=== PATIENT | male | born 1960 | race African-American/Black ===

== ENCOUNTER 2021-07-03 20:07 | Inpatient (IN) | payer OTHER, SELFPAY ==
[2021-07-03] MEDS ORDERED: NA CHLORIDE 0.9% 1,000 ML ONE (21:10)
[2021-07-03 21:29] LABS: Arterial Blood Carboxyhemoglob 0.9 % (0-1.5); Blood Gas Oxyhemoglobin 89.9 % (94-97); Blood O2 Saturation 91.5 % (92-98.5)
--- NOTE | 2021-07-03 22:07 | RAD REPORT ---
EXAM DESCRIPTION: RAD - Chest Single View - 07/03/2021 9:57 pm CLINICAL HISTORY: Cough;COPD COMPARISON: No comparisonsCHEST SINGLE VIEW dated 06/10/2014; CHEST PA AND LAT 2 VIEW dated 07/13/2011 FINDINGS: Lines: Sternotomy. Lungs: Moderate multifocal airspace disease predominantly in the lung bases. Pleural: No significant pleural effusions or pneumothorax. Cardiac: The heart size is within normal limits. Bones: No acute fractures. Other: IMPRESSION: Moderate bilateral airspace disease concerning for multifocal pneumonia.
[2021-07-03 22:29] LABS: Absolute Lymphocytes (CBC) 0.8 K/uL (0.7-4.9); Hematocrit 37.5 % (39.6-49.0); Lymphocytes % 5.8 % (15.3-44.8); MPV 10.1 fL (7.6-11.3); RBC Red Blood Cell Count 4.73 M/uL (4.33-5.43)
[2021-07-03] MEDS ORDERED: FAMOTIDINE 20 MG/2 ML VIAL IV ONE (22:35)
[2021-07-03] MEDS ORDERED: METHYLPREDNISOLONE 125 MG INJ ONE (22:35)
[2021-07-03] MEDS ORDERED: CEFTRIAXONE 1000 MG/VIAL ONE (22:35)
[2021-07-03] MEDS ORDERED: AZITHROMYCIN 500 MG INJ IVPB ONE (22:35)
[2021-07-03] MEDS ORDERED: NA CHLORIDE 0.9% 250 ML ONE (22:35)
[2021-07-03] MEDS ORDERED: ALBUTEROL INHALER 60 PUFF/8 GM IH ONE (22:36)
[2021-07-03 22:44] LABS: Protime INR 1.23
[2021-07-03 22:45] LABS: Blood Gas Oxyhemoglobin 91.6 % (94-97); Blood O2 Saturation 93.3 % (92-98.5)
[2021-07-03] MEDS ORDERED: MONTELUKAST 10 MG TAB ONE (22:53)
--- NOTE | 2021-07-03 23:03 | EDPHYS ---
Physician Documentation [facility] Name: Jamin Baca Age: 60 yrs Sex: Male : 1960 Arrival Date: 07/03/2021 Time: 20:11 Bed 3 Private MD: ED Physician Ricardo Christopher HPI: 07/03 21:11 This 60 yrs old Black Male presents to ER via EMS with complaints of sob, on bean supplemental o2 and covid recently. 21:11 The patient has shortness of breath at rest, with light activity. Onset: The bean symptoms/episode began/occurred 2 day(s) ago. Duration: The symptoms are continuous, and are steadily getting worse. The patient's shortness of breath is aggravated by coughing, exertion, light activity, is alleviated by sitting up, application of supplemental oxygen. Associated signs and symptoms: Pertinent positives: non-productive cough. Severity of symptoms: At their worst the symptoms were moderate in the emergency department the symptoms have resolved. The patient has not experienced similar symptoms in the past. Historical: - Allergies: 20:21 No Known Allergies; sm5 - Home Meds: 20:22 albuterol inhaler [Active]; doxazosin 4 mg oral tab 1 tab once daily [Active]; Lantus sm5 U-100 Insulin 100 unit/mL Sub-Q soln [Active]; metformin 500 mg Oral tab 1 tab 2 times per day [Active]; Reglan 5 mg Oral tab [Active]; - PMHx: 20:22 coronary artery disease; Diabetes mellitus; Hypertensive disorder; sm5 - PSHx: 20:22 Coronary artery bypass graft; sm5 - Immunization history:: Adult Immunizations unknown. - Social history:: Smoking status: unknown. - Family history:: not pertinent. ROS: 21:11 Constitutional: Negative for fever, chills, and weight loss, Eyes: Negative for injury, bean pain, redness, and discharge, ENT: Negative for injury, pain, and discharge, Neck: Negative for injury, pain, and swelling, Cardiovascular: Negative for chest pain, palpitations, and edema, Abdomen/GI: Negative for abdominal pain, nausea, vomiting, diarrhea, and constipation, Back: Negative for injury and pain, : Negative for injury, bleeding, discharge, and swelling, MS/Extremity: Negative for injury and deformity, Skin: Negative for injury, rash, and discoloration, Neuro: Negative for headache, weakness, numbness, tingling, and seizure, Psych: Negative for depression, anxiety, suicide ideation, homicidal ideation, and hallucinations, Allergy/Immunology: Negative for hives, rash, and allergies, Endocrine: Negative for neck swelling, polydipsia, polyuria, polyphagia, and marked weight changes, Hematologic/Lymphatic: Negative for swollen nodes, abnormal bleeding, and unusual bruising. 21:11 Respiratory: Positive for cough, shortness of breath, at rest. Exam: 21:11 Constitutional: This is a well developed, well nourished patient who is awake, alert, bean and in no acute distress. Head/Face: Normocephalic, atraumatic. Eyes: Pupils equal round and reactive to light, extra-ocular motions intact. Lids and lashes normal. Conjunctiva and sclera are non-icteric and not injected. Cornea within normal limits. Periorbital areas with no swelling, redness, or edema. ENT: Nares patent. No nasal discharge, no septal abnormalities noted. Tympanic membranes are normal and external auditory canals are clear. Oropharynx with no redness, swelling, or masses, exudates, or evidence of obstruction, uvula midline. Mucous membranes moist. Neck: Trachea midline, no thyromegaly or masses palpated, and no cervical lymphadenopathy. Supple, full range of motion without nuchal rigidity, or vertebral point tenderness. No Meningismus. Chest/axilla: Normal chest wall appearance and motion. Nontender with no deformity. No lesions are appreciated. Cardiovascular: Regular rate and rhythm with a normal S1 and S2. No gallops, murmurs, or rubs. Normal PMI, no JVD. No pulse deficits. Abdomen/GI: Soft, non-tender, with normal bowel sounds. No distension or tympany. No guarding or rebound. No evidence of tenderness throughout. Back: No spinal tenderness. No costovertebral tenderness. Full range of motion. Male : Normal genitalia with no discharge or lesions. Skin: Warm, dry with normal turgor. Normal color with no rashes, no lesions, and no evidence of cellulitis. MS/ Extremity: Pulses equal, no cyanosis. Neurovascular intact. Full, normal range of motion. Neuro: Awake and alert, GCS 15, oriented to person, place, time, and situation. Cranial nerves II-XII grossly intact. Motor strength 5/5 in all extremities. Sensory grossly intact. Cerebellar exam normal. Normal gait. Psych: Awake, alert, with orientation to person, place and time. Behavior, mood, and affect are within normal limits. 21:11 Respiratory: the patient does not display signs of respiratory distress, Respirations: no acute changes, Breath sounds: decreased breath sounds, that are mild, are scattered, rhonchi, that are mild, are scattered, Respiratory rate: 23 22:37 Musculoskeletal/extremity: DVT Exam: No signs of deep vein thrombosis. no pain, no bean swelling, no tenderness, negative Homans' sign noted on exam, no appreciated bluish discoloration, no erythema, no increased warmth. 23:29 ECG was reviewed by the Attending Physician. [facility] Vital Signs: 20:11 BP 131 / 77; Pulse 87; Resp 23; Temp 98.2; Pulse Ox 98% on 5 lpm NC; sm5 21:16 BP 141 / 93; Pulse 82; Resp 21 S; Pulse Ox 100% on R/A; lg3 MDM: 20:11 Patient medically screened. bean 21:14 Differential diagnosis: Anemia asthma, Bronchitis CHF exacerbation, Chronic Obstructive bean Pulmonary Disease pneumonia, reactive airway disease. Antibiotic administration: Not indicated. The patient's Wells Deep Vein Thrombosis Score was calculated as follows: Total Score: 0-2 Pts- Low Risk. The patient's pulmonary embolism risk score was calculated as follows: Total Score: 0-2 points. This patient was found to be at low risk for a pulmonary embolism by using the Well's assessment criteria. Immunization status: Influenza vaccine: within last 5 years. Data reviewed: vital signs, nurses notes, lab test result(s), EKG, radiologic studies. Data interpreted: manager monitoring: rate is 87 beats/min, rhythm is regular, Pulse oximetry: on room air is 98 %. Test interpretation: by ED physician or midlevel provider: ECG, plain radiologic studies. Counseling: I had a detailed discussion with the patient and/or guardian regarding: the historical points, exam findings, and any diagnostic results supporting the discharge/admit diagnosis, lab results, radiology results. 07/03 21:04 Order name: Basic Metabolic Panel [facility] 07/03 21:04 Order name: CBC with Diff; Complete Time: 23:59 [facility] 01/31 21:04 Order name: LFT's [facility] 07/03 21:04 Order name: Magnesium [facility] 07/03 21:04 Order name: NT PRO-BNP [facility] 07/03 21:04 Order name: PT-INR; Complete Time: 23:02 [facility] 07/03 21:04 Order name: Troponin HS [facility] 07/03 21:04 Order name: ABG: ra; Complete Time: 22:36 [facility] 07/03 21:04 Order name: SARS-COV-2 RT PCR (Document "Date of Onset" if Symptomatic) [facility] 07/03 21:52 Order name: Blood Culture Adult (2) [facility] 07/03 22:26 Order name: C-Reactive Protein [facility] 07/03 22:26 Order name: Ferritin [facility] 07/03 21:04 Order name: XRAY Chest (1 view); Complete Time: 22:36 [facility] 07/03 21:04 Order name: EKG; Complete Time: 21:05 [facility] 07/03 21:04 Order name: Cardiac monitoring; Complete Time: 22:10 [facility] 07/03 21:04 Order name: EKG - Nurse/Tech; Complete Time: 23:41 [facility] 07/03 21:04 Order name: IV Saline Lock; Complete Time: 22:10 [facility] 07/03 21:04 Order name: Labs collected and sent; Complete Time: 22:10 [facility] 07/03 22:30 Order name: ABG: ra; Complete Time: 00:41 [facility] 07/03 22:30 Order name: Manual Differential; Complete Time: 23:59 [facility] 07/03 21:04 Order name: O2 Per Protocol; Complete Time: 22:10 [facility] 07/03 21:04 Order name: O2 Sat Monitoring; Complete Time: 22:10 [facility] EC:29 Rate is 80 beats/min. Rhythm is regular. QRS [place] is Normal. [place] interval is normal. QRS bean interval is normal. QT interval is normal. No Q waves. T waves are Normal. ST Segment is depressed in leads I, II, III, aVL, aVF, V4, V5, V6. Clinical impression: Abnormal EKG without significant change and No evidence of ischemia. Interpreted by me. Reviewed by me. Administered Medications: 21:14 Drug: NS 0.9% 1000 ml Route: IV; Rate: 75 ml/hr; Site: right antecubital; lg3 22:48 Drug: Rocephin (cefTRIAXone) 1 grams Route: IV; Rate: bolus; Site: right forearm; sm5 22:50 Drug: SOLU-Medrol (methylPrednisoLONE) 125 mg Route: IVP; Site: right forearm; sm5 22:50 Drug: Albuterol HFA Inhaler 4 puffs Route: Inhalation; sm5 22:50 Drug: Pepcid (famotidine) 20 mg Route: IVP; Site: right forearm; sm5 22:51 Drug: Zithromax (azithromycin) 500 mg Route: IVPB; Infused Over: 1 hrs; Site: right sm5 forearm; 07/04 00:42 Drug: Montelukast 10 mg Route: PO; sm5 Disposition Summary: 07/03/21 23:02 Hospitalization Ordered Hospitalization Status: Observation bean Provider: Kar Santillan cha Location: Telemetry/MedSurg (observation) bean Condition: Stable bean Problem: new bean Symptoms: have improved bean Bed/Room Type: Standard [facility] Room Assignment: 410(07/04/21 01:09) Diagnosis - Hypoxemia bean - Coronavirus infection, unspecified bean - Pneumonia due to SARS-associated coronavirus bean - Elevated white blood cell count bean - Bandemia bean - Anemia, unspecified bean Forms: - Medication Reconciliation Form bean - SBAR form bean Signatures: Dispatcher [employer] EDMS Yaima Boyer RN RN mw Anderson, Corey, MD MD cha Attema, Lee, APPELLATE CONFEREE-C APPELLATE CONFEREE-Cla1 Pily Dunn RN RN lg3 Madison Sanz RN RN sm5 Corrections: (The following items were deleted from the chart) 07/03 22:26 21:53 FERRITIN+C.LAB.BRZ ordered. EDMS EDMS : 21:53 C-REACTIVE PROTEIN+C.LAB.BRZ ordered. EDMS EDMS 22:27 21:50 Chest For PE Angio+CT.RAD.BRZ ordered. EDMS EDMS 07/04 01:09 07/03 23:02 bean royal
--- NOTE | 2021-07-03 23:03 | ER ---
Nurse's Notes [facility] Name: Jamin Baca Age: 60 yrs Sex: Male : 1960 Arrival Date: 07/03/2021 Time: 20:11 Bed 3 Private MD: Diagnosis: Hypoxemia;Coronavirus infection, unspecified;Pneumonia due to SARS-associated coronavirus;Elevated white blood cell count;Bandemia;Anemia, unspecified Presentation: 07/03 20:11 Chief complaint: EMS states: pt released from longterm today. longterm unable to find someone sm5 to come get him so they called ems to bring him here since he is on O2. Coronavirus screen: Client reports previous positive COVID test result. Ebola Screen: No symptoms or risks identified at this time. Initial Sepsis Screen: Does the patient meet any 2 criteria? No. Patient's initial sepsis screen is negative. Does the patient have a suspected source of infection? No. Patient's initial sepsis screen is negative. Risk Assessment: Do you want to hurt yourself or someone else? Patient reports no desire to harm self or others. Onset of symptoms is unknown. 20:11 Method Of Arrival: EMS 5 20:11 Acuity: SERVANDO 5 sm5 Triage Assessment: 20:24 General: Appears in no apparent distress. Behavior is appropriate for age. Pain: Denies sm5 pain. Neuro: No deficits noted. Level of Consciousness is awake, alert. Cardiovascular: No deficits noted. Capillary refill < 3 seconds Patient's skin is warm and dry. Respiratory: Airway is patent Trachea midline Respiratory effort is even, unlabored. : Velasquez in place. Historical: - Allergies: 20:21 No Known Allergies; sm5 - Home Meds: 20:22 albuterol inhaler [Active]; doxazosin 4 mg oral tab 1 tab once daily [Active]; Lantus sm5 U-100 Insulin 100 unit/mL Sub-Q soln [Active]; metformin 500 mg Oral tab 1 tab 2 times per day [Active]; Reglan 5 mg Oral tab [Active]; - PMHx: 20:22 coronary artery disease; Diabetes mellitus; Hypertensive disorder; sm5 - PSHx: 20:22 Coronary artery bypass graft; sm5 - Immunization history:: Adult Immunizations unknown. - Social history:: Smoking status: unknown. - Family history:: not pertinent. Screenin:14 Abuse screen: Denies threats or abuse. Denies injuries from another. Nutritional sm5 screening: No deficits noted. Tuberculosis screening: No symptoms or risk factors identified. Fall Risk None identified. Assessment: 21:15 Reassessment: Patient appears in no apparent distress at this time. No changes from lg3 previously documented assessment. Patient and/or family updated on plan of care and expected duration. Pain level reassessed. Patient is alert, oriented x 3, equal unlabored respirations, skin warm/dry/pink. General:. Pain: Denies pain. Cardiovascular: Capillary refill < 3 seconds JVD is absent Patient's skin is warm and dry. Respiratory: Airway is patent Trachea midline Respiratory effort is even, unlabored, Respiratory pattern is regular, symmetrical. 22:32 Reassessment: No changes from previously documented assessment. sm5 23:47 Reassessment: No changes from previously documented assessment. Patient and/or family sm5 updated on plan of care and expected duration. Pain level reassessed. 07/04 00:56 Reassessment: No changes from previously documented assessment. Patient and/or family sm5 updated on plan of care and expected duration. Pain level reassessed. Vital Signs: 07/03 20:11 BP 131 / 77; Pulse 87; Resp 23; Temp 98.2; Pulse Ox 98% on 5 lpm NC; sm5 21:16 BP 141 / 93; Pulse 82; Resp 21 S; Pulse Ox 100% on R/A; lg3 ED Course: 20:11 Patient arrived in ED. mw2 20:11 Madison Sanz RN is Primary Nurse. sm5 20:11 Ricardo Christopher MD is Attending Physician. bean 20:14 Triage completed. sm5 20:25 Arm band placed on left wrist. sm5 20:25 Patient has correct armband on for positive identification. Bed in low position. Call 5 light in reach. Side rails up X2. 20:25 No provider procedures requiring assistance completed. sm5 21:57 XRAY Chest (1 view) In Process Unspecified. EDMS 22:09 Blood Culture Adult (2) Sent. sm5 22:10 Basic Metabolic Panel Sent. sm5 22:10 CBC with Diff Sent. sm5 22:10 LFT's Sent. sm5 22:10 Magnesium Sent. sm5 22:10 NT PRO-BNP Sent. 5 22:10 PT-INR Sent. [facility] 22:10 Troponin HS Sent. [facility] 23:00 Kar Santillan MD is Hospitalizing Provider. [facility] 23:23 SARS-COV-2 RT PCR (Document "Date of Onset" if Symptomatic) Sent. [facility] 07/04 02:02 Patient admitted, IV remains in place. [facility] Administered Medications: 07/03 21:14 Drug: NS 0.9% 1000 ml Route: IV; Rate: 75 ml/hr; Site: right antecubital; lg3 22:48 Drug: Rocephin (cefTRIAXone) 1 grams Route: IV; Rate: bolus; Site: right forearm; [facility] 22:50 Drug: SOLU-Medrol (methylPrednisoLONE) 125 mg Route: IVP; Site: right forearm; [facility] 22:50 Drug: Albuterol HFA Inhaler 4 puffs Route: Inhalation; [facility] 22:50 Drug: Pepcid (famotidine) 20 mg Route: IVP; Site: right forearm; [facility] 22:51 Drug: Zithromax (azithromycin) 500 mg Route: IVPB; Infused Over: 1 hrs; Site: right 5 forearm; 07/04 00:42 Drug: Montelukast 10 mg Route: PO; [facility] Outcome: 07/03 23:02 Decision to Hospitalize by Provider. [facility] 07/04 02:00 Patient left the ED. [facility] 02:02 Admitted to Tele accompanied by nurse, via wheelchair, with chart. [facility] 02:02 Condition: stable 02:02 Instructed on the need for admit. Signatures: Dispatcher [employer] EDMS Ricardo Christopher MD MD cha [place], MyKena mw2 Pily Dunn, PRAFUL RN lg3 Charleen Llamas 5 Madison Sanz, PRAFUL RN 5 Corrections: (The following items were deleted from the chart) 07/03 22:26 22:09 FERRITIN+C.LAB.BRZ drawn and sent. [facility] EDWA : 22:09 C-REACTIVE PROTEIN+C.LAB.BRZ drawn and sent. [address]
--- NOTE | 2021-07-03 23:41 | P.HP ---
Certification for Inpatient Patient admitted to: Inpatient With expected LOS: >2 Midnights Patient will require the following post-hospital care: None Practitioner: I am a practitioner with admitting privileges, knowledge of patient current condition, hospital course, and medical plan of care. Services: Services provided to patient in accordance with Admission requirements found in Title 42 Section 412.3 of the Code of Federal Regulations <Ottoniel Deras - Last Filed: 07/04/21 00:42> Patient History Date of Service: 07/04/21 Primary Care Provider: None Reason for admission: COVID-19 Pneumonia History of Present Illness: 60-year-old -Mexican male with history of CAD, diabetes mellitus type 2insulin-dependent, hypertension presents the emergency department for shortness of breath. Patient was reportedly recently admitted at [facility] for Covid pneumonia, patient reports that he spent 3 to 4 weeks at [facility] and was discharged on home oxygen back to [facility] but was released from [facility] without oxygen, patient was brought into our emergency department for further evaluation. Patient found to be mildly hypoxic satting around 88 to 89% on room air. Patient with mild leukocytosis, tolerating to the cannula well around 2 L at this time. Patient also without place to be discharged at this time reports that he was previously staying with his sister but she kicked him out, his mother lives in [place], also reports he has some friends in the area. ED provider wishes to admit for further evaluation and management of COVID-19 pneumonia with hypoxia. - Past Medical/Surgical History -: Diabetes mellitus type 2insulin-dependent -: Hypertension -: CAD -: CABG Psychosocial/ Personal History: Patient appears to be homeless at this time was recently released from [facility] - Family History Father History Unknown: Yes - Social History Smoking Status: Never smoker Alcohol use: Yes CD- Drugs: Yes Caffeine use: No Place of Residence: Home <Ottoniel Deras - Last Filed: 07/04/21 00:42> Date of Service: 07/04/21 <Kar Santillan - Last Filed: 07/04/21 18:24> Allergies methadone [Methadone] Allergy (Intermediate, Verified 07/12/11 21:00) Hives/Rash Home Medications: Aspirin Chewable 81 mg PO DAILY 07/12/11 Ampicillin Trihydrate 500 mg PO BID #0 capsule 07/18/11 Glimepiride [Amaryl] 1 mg PO BID #0 tablet 07/18/11 Metoprolol Tartrate [Lopressor*] 25 mg PO BID #0 tab 07/18/11 Review of Systems 10-point ROS is otherwise unremarkable Respiratory: Cough, Shortness of Breath <Ottoniel Deras - Last Filed: 07/04/21 00:42> Physical Examination - Physical Exam General: Alert, In no apparent distress, Oriented x3 HEENT: Atraumatic, PERRLA, Other (mm dry), EOMI, Sclerae nonicteric Neck: Supple, 2+ carotid pulse no bruit, No LAD, Without JVD or thyroid abnormality Respiratory: Clear to auscultation bilaterally, Normal air movement Cardiovascular: Regular rate/rhythm, Normal S1 S2 Capillary refill: <2 Seconds Gastrointestinal: Normal bowel sounds, No tenderness Musculoskeletal: No tenderness Integumentary: No rashes Neurological: Normal gait, Normal speech, Normal strength at 5/5 x4 extr, Normal tone, Normal affect Lymphatics: No axilla or inguinal lymphadenopathy External genitalia: Other (Velasquez in place) - Studies Laboratory Data (last 24 hrs) 07/03/21 21:58: PT 14.2 H, INR 1.23 07/03/21 21:58: WBC 13.70 H, Hgb 12.1 L, Hct 37.5 L, Plt Count 138 L <Ottoniel Deras - Last Filed: 07/04/21 00:42> - Studies Laboratory Data (last 24 hrs) 07/03/21 21:58: PT 14.2 H, INR 1.23 07/03/21 21:58: WBC 13.70 H, Hgb 12.1 L, Hct 37.5 L, Plt Count 138 L 07/03/21 21:58: Sodium 134 L, Potassium 3.8, BUN 9, Creatinine 0.62, Glucose 120 H, Magnesium 1.7, Total Bilirubin 0.4, AST 21, ALT 29, Alkaline Phosphatase 147 H Microbiology Data (last 24 hrs): 07/03/21 22:05 Blood - Blood Anaerobic Blood Culture - Final 07/03/21 21:58 Blood - Blood Anaerobic Blood Culture - Final <Kar Santillan - Last Filed: 07/04/21 18:24> Assessment and Plan - Plan Assessment: Acute hypoxic respiratory failure secondary to COVID-19 pneumonia Diabetes type 2insulin-dependent History of CAD status post CABG Plan: Acute hypoxic respiratory failure secondary to COVID-19 pneumonia: Patient with minor oxygen requirement this time currently saturating 88 to 89% on room air tolerate nasal cannula well around 2 to 3 L. Patient was reportedly sent home from [facility] without oxygen supply, also reportedly does not have a place to stay currently. Reports he was kicked out by his sister, has a mother that lives in [place]. Patient currently asking about shelters. Pulmonology consulted continue with IV steroids, trend CRP level, supplemental oxygen as needed, daily room air saturations, room air saturations for home oxygen. caregiver services home also consulted for assistance with discharge plan. Physical therapy also consulted as patient reports he is unsteady on his feet. Diabetes type 2insulin-dependent: ACH S Accu-Chek, sliding scale insulin. History of CAD status post CABG: Obtain and continue medications, monitor on telemetry. DVT PPX: Lovenox Code status: Full Discharge Plan: Home Plan to discharge in: Greater than 2 days - Advance Directives Does patient have a Living Will: No Does patient have a Durable POA for Healthcare: No - Code Status/Comfort Care Code Status Assessed: Yes (Full code) Critical Care: No Time Spent Managing Pts Care (In Minutes): 55 <Ottoniel Deras - Last Filed: 07/04/21 00:42>
[2021-07-03 23:57] LABS: Blood Morphology Comment NOT SEEN (NOT SEEN); Platelet Estimate ADEQ
[2021-07-04 00:07] LABS: ALT/SGPT 29 U/L (12-78); AST/SGOT 21 U/L (15-37); Albumin 1.6 g/dL (3.4-5.0); Alkaline Phosphatase 147 U/L (45-117); BUN Blood Urea Nitrogen 9 mg/dL (7-18); Bicarbonate 32 mmol/L (21-32); Bilirubin Direct 0.2 mg/dL (0-0.2); Bilirubin Total 0.4 mg/dL (0.2-1.0); Ferritin 1240.5 ng/mL (26-388); Glucose Level 120 mg/dL (74-106); NT PRO-BNP 937 pg/mL (<125); Potassium 3.8 mmol/L (3.5-5.1); Protein, Total 7.8 g/dL (6.4-8.2); Sodium Level 134 mmol/L (136-145)
[2021-07-04] MEDS ORDERED: ALBUTEROL 2.5 MG/3 ML NEB SOL NEB PRN (01:58)
[2021-07-04] MEDS ORDERED: SODIUM CHLORIDE 0.9% 10ML INJ IV PRN (01:58)
[2021-07-04] MEDS ORDERED: ONDANSETRON 4 MG/2 ML VIAL IV PRN (01:58)
[2021-07-04] MEDS ORDERED: ACETAMINOPHEN 500 MG TAB PO PRN (01:58)
[2021-07-04 03:51] LABS: Absolute Lymphocytes (CBC) 0.4 K/uL (0.7-4.9); Lymphocytes % 3.1 % (15.3-44.8); MPV 10.2 fL (7.6-11.3); RBC Red Blood Cell Count 4.77 M/uL (4.33-5.43)
[2021-07-04 04:15] LABS: ALT/SGPT 26 U/L (12-78); AST/SGOT 21 U/L (15-37); Albumin 1.5 g/dL (3.4-5.0); Alkaline Phosphatase 139 U/L (45-117); BUN Blood Urea Nitrogen 11 mg/dL (7-18); Bicarbonate 28 mmol/L (21-32); Bilirubin Total 0.4 mg/dL (0.2-1.0); Glucose Level 196 mg/dL (74-106); HDL Cholesterol 33 mg/dL (40-60); LDL Cholesterol, Calculated 122 (<130); Potassium 3.8 mmol/L (3.5-5.1); Protein, Total 7.6 g/dL (6.4-8.2); Sodium Level 134 mmol/L (136-145); Thyroid Stimulating Hormone 0.749 uIU/mL (0.360-3.740)
[2021-07-04 06:04] LABS: Urine Appearance CLEAR (Clear); Urine Bilirubin NEGATIVE (Negative); Urine Blood NEGATIVE (Negative); Urine Color YELLOW (Yellow); Urine Glucose NEGATIVE (Negative); Urine Microscopic Reflex NO UMIC; Urine Protein NEGATIVE (Negative); Urine pH 7.5 (5.0-7.0)
[2021-07-04] MEDS ORDERED: NA CHLORIDE 0.9% 500 ML IV ONE (06:49)
--- NOTE | 2021-07-04 06:57 | P.PN ---
Date of Service: 07/04/21 Subjective: Reports feeling little better this morning, breathing more comfortably Intermittently on 2 L nasal cannula overnight Denies any other symptoms/complaints Denies any rashes/skin lesions, no diarrhea, no abdominal pain ROS: 10 point ROS as noted above, otherwise negative Physical exam GEN: Alert, oriented, NAD HEENT: Normal conjunctiva, sclera anicteric CV: Regular rate and rhythm, no edema Pulm: Nonlabored respirations on 2L NC, dry cough ABD: Soft, nontender, nondistended Integumentary: No rashes / skin breakdown Neuro: Normal speech, normal affect Problem List Acute hypoxemic respiratory failure secondary to COVID-19 pneumonia Diabetes mellitus type 2, insulin-dependent History of CAD, s/p CABG Oxygen requirement improving, down to 2 L nasal cannula, intermittently on room air Wean oxygen as tolerated Change to p.o. steroids Patient with borderline low blood pressure, hypotensive, received 1 L bolus in the ED Repeat 500 cc bolus this morning Start empiric antibiotics, to cover for possible bacterial superinfection, cover MRSA given recent hospitalization/custodial With mild leukocytosis, elevated procalcitonin. Leukocytosis may be secondary to steroids, patient does not recall if he was being treated with steroids in custodial or not Daily room air sats, may need home oxygen. director pharmacy services consulted Patient currently without a home / place to stay VTE: Lovenox Code: Full Dispo: Anticipate DC home in 1-2 days Time Spent Managing Pts Care (In Minutes): 35
[2021-07-04 07:36] VITALS: BMI 18.6
[2021-07-04] MEDS ORDERED: INFLUENZA VACCINE (for 6+ mo) 0.5 ML DOSE IMVAC ONE (08:00)
--- NOTE | 2021-07-04 08:14 | EKG ---
Test Date: 2021-07-03 Test Time: 23:22:57 [employer] Ranger: MESERET MEASUREMENT RESULTS: Intervals: Rate: 80 SC: 118 QRSD: 102 QT: 378 QTc: 435 [place]: P: 62 SC: 118 QRS: 64 T: 222 INTERPRETIVE STATEMENTS: Sinus rhythm with occasional premature ventricular complexes ST & T wave abnormality, consider inferior ischemia ST & T wave abnormality, consider anterolateral ischemia Abnormal ECG Compared to ECG 06/10/2014 10:41:32 ST (T wave) deviation now present Possible ischemia now present Sinus tachycardia no longer present T-wave abnormality no longer present Electronically Signed On 07-04-21 08:13:42 INVENTORY ACCOUNTANT by Will Simmons
[2021-07-04] MEDS: CEFTRIAXONE 1,000 MG in NA CHLORIDE 0.9% 50 ML IVPB SCH (08:43)
[2021-07-04] MEDS: INSULIN -REGULAR HUMAN 50 UNIT/0.5 ML ML SQ SCH ×4 (08:43→20:49)
[2021-07-04] MEDS: ENOXAPARIN 40 MG/0.4 ML SQ SCH (08:43)
[2021-07-04] MEDS ORDERED: VANCOMYCIN 1.25 GM in NA CHLORIDE 0.9% 250 ML IVPB SCH (09:00)
[2021-07-04] MEDS ORDERED: METHYLPREDNISOLONE 40 MG INJ IV SCH (09:00)
[2021-07-04] MEDS ORDERED: PANTOPRAZOLE 40 MG INJ IVP SCH (09:00)
--- NOTE | 2021-07-04 12:09 | P.CNS ---
Date of Consult: 07/04/21 Reason for Consult: Coronavirus pneumonia Primary Care Provider: None Chief Complaint: COVID-19 Pneumonia History of Present Illness: Patient is 60 years of age metabolic syndrome. From the emergency department with shortness of breath he was at [facility] diagnosed with canela diagnosed with pneumonia he was discharged home on oxygen was released with from skilled nursing without oxygen he is currently doing well denies any shortness of breath he was little hypoxic on admission no cough chest pain Allergies methadone [Methadone] Allergy (Intermediate, Verified 07/12/11 21:00) Hives/Rash Home Medications: Aspirin Chewable 81 mg PO DAILY 07/12/11 Ampicillin Trihydrate 500 mg PO BID #0 capsule 07/18/11 Glimepiride [Amaryl] 1 mg PO BID #0 tablet 07/18/11 Metoprolol Tartrate [Lopressor*] 25 mg PO BID #0 tab 07/18/11 - Past Medical/Surgical History -: Diabetes mellitus type 2insulin-dependent -: Hypertension -: CAD -: Coronavirus pneumonia -: CABG Psychosocial/ Personal History: Patient appears to be homeless at this time was recently released from skilled nursing/hospital - Family History Father History Unknown: Yes - Social History Smoking Status: Unknown if ever smoked Alcohol use: Yes CD- Drugs: Yes Caffeine use: No Place of Residence: Home Review of Systems 10-point ROS is otherwise unremarkable General: Weakness Respiratory: Shortness of Breath Physical Examination Temp Pulse Resp BP Pulse Ox 97.6 F 68 16 106/58 L 91 07/04/21 08:00 07/04/21 08:00 07/04/21 08:00 07/04/21 08:00 07/04/21 08:00 General: Alert, In no apparent distress, Oriented x3 Respiratory: Clear to auscultation bilaterally, Diminished Laboratory Data (last 24 hrs) 07/03/21 21:58: PT 14.2 H, INR 1.23 07/03/21 21:58: WBC 13.70 H, Hgb 12.1 L, Hct 37.5 L, Plt Count 138 L 07/03/21 21:58: Sodium 134 L, Potassium 3.8, BUN 9, Creatinine 0.62, Glucose 120 H, Total Bilirubin 0.4, AST 21, ALT 29, Alkaline Phosphatase 147 H - Problems (1) Pneumonia due to coronavirus disease 2019 Current Visit: Yes Status: Acute Plan: Patient is 60 years of age tested positive for coronavirus he was retaining recently at [facility] was discharged from the skilled nursing without oxygen he remains hypoxic chest x-ray shows bilateral pneumonia compatible with coronavirus his white count is mildly elevated not clinically septic once his blood cultures are negative can switch him over to p.o. antibiotics and steroid according to the respiratory therapy saturation 97% on room
[2021-07-04 13:12] LABS: Magnesium 1.7
[2021-07-04] MEDS: predniSONE 20 MG TAB PO SCH (20:49)
[2021-07-04] MEDS: VANCOMYCIN 1.25 GM in NA CHLORIDE 0.9% 250 ML IVPB SCH (20:53)
[2021-07-04] MEDS ORDERED: VANCOMYCIN 1 GM/VIAL ONE (20:54)
[2021-07-05 03:55] LABS: Absolute Lymphocytes (CBC) 0.8 K/uL (0.7-4.9); Hematocrit 35.3 % (39.6-49.0); Lymphocytes % 6.7 % (15.3-44.8); MPV 10.9 fL (7.6-11.3); RBC Red Blood Cell Count 4.43 M/uL (4.33-5.43)
[2021-07-05 04:11] LABS: ALT/SGPT 26 U/L (12-78); AST/SGOT 16 U/L (15-37); Albumin 1.4 g/dL (3.4-5.0); Alkaline Phosphatase 125 U/L (45-117); BUN Blood Urea Nitrogen 15 mg/dL (7-18); Bicarbonate 27 mmol/L (21-32); Bilirubin Total 0.2 mg/dL (0.2-1.0); Ferritin 893.9 ng/mL (26-388); Glucose Level 177 mg/dL (74-106); Potassium 3.9 mmol/L (3.5-5.1); Sodium Level 134 mmol/L (136-145)
--- NOTE | 2021-07-05 06:34 | P.PN ---
Date of Service: 07/05/21 Subjective: No acute events overnight Continues to improve Breathing more comfortably, remained on room air throughout the evening/night No new symptoms/complaints Talking with his family and figure where he will go upon discharge ROS: 10 point ROS as noted above, otherwise negative Physical exam GEN: Alert, oriented, NAD HEENT: Normal conjunctiva, sclera anicteric CV: Regular rate and rhythm, no edema Pulm: Nonlabored respirations on RA, dry cough ABD: Soft, nontender, nondistended Integumentary: No rashes / skin breakdown Neuro: Normal speech, normal affect Problem List Acute hypoxemic respiratory failure secondary to COVID-19 pneumonia Suspected bacterial superinfection/pneumonia Diabetes mellitus type 2, insulin-dependent History of CAD, s/p CABG Oxygen requirement improved, remained stable on room air Continue p.o. steroids Blood pressure improved/stable On empiric antibiotics for possible bacterial superinfection, and covered for MRSA given recent hospitalization/gel Blood cultures remain negative, de-escalate antibiotics to p.o. Levaquin With mild leukocytosis, elevated procalcitonin. Leukocytosis may be secondary to steroids, patient does not recall if he was being treated with steroids in custodial or not multimedia services manager consulted to assist with disposition Patient currently without a home / place to stay VTE: Lovenox Code: Full Dispo: [facility] Patient also discussed with family possible options were to go. Time Spent Managing Pts Care (In Minutes): 35
[2021-07-05] MEDS: CEFTRIAXONE 1,000 MG in NA CHLORIDE 0.9% 50 ML IVPB SCH (09:28)
[2021-07-05] MEDS: ENOXAPARIN 40 MG/0.4 ML SQ SCH (09:29)
[2021-07-05] MEDS: VANCOMYCIN 1.25 GM in NA CHLORIDE 0.9% 250 ML IVPB SCH (09:29)
[2021-07-05] MEDS: predniSONE 20 MG TAB PO SCH ×2 (09:30→21:43)
[2021-07-05] MEDS: PANTOPRAZOLE 40MG TABLET PO SCH (09:30)
[2021-07-05] MEDS: INSULIN -REGULAR HUMAN 50 UNIT/0.5 ML ML SQ SCH ×4 (09:30→21:43)
[2021-07-06 04:09] LABS: Absolute Lymphocytes (CBC) 0.6 K/uL (0.7-4.9); Hematocrit 34.6 % (39.6-49.0); Lymphocytes % 7.6 % (15.3-44.8); MPV 10.7 fL (7.6-11.3); RBC Red Blood Cell Count 4.35 M/uL (4.33-5.43)
[2021-07-06 04:40] LABS: ALT/SGPT 23 U/L (12-78); AST/SGOT 13 U/L (15-37); Albumin 1.5 g/dL (3.4-5.0); Alkaline Phosphatase 108 U/L (45-117); BUN Blood Urea Nitrogen 15 mg/dL (7-18); Bicarbonate 29 mmol/L (21-32); Bilirubin Total 0.2 mg/dL (0.2-1.0); Glucose Level 108 mg/dL (74-106); Protein, Total 6.8 g/dL (6.4-8.2); Sodium Level 137 mmol/L (136-145)
--- NOTE | 2021-07-06 06:41 | P.PN ---
Date of Service: 07/06/21 Subjective: No acute events overnight. Remains on room air, breathing comfortably No new symptoms/complaints ROS: 10 point ROS as noted above, otherwise negative Physical exam GEN: Alert, oriented, NAD HEENT: Normal conjunctiva, sclera anicteric CV: Regular rate and rhythm, no edema Pulm: Nonlabored respirations on RA ABD: Soft, nontender, nondistended Integumentary: No rashes / skin breakdown Neuro: Normal speech, normal affect Problem List Acute hypoxemic respiratory failure secondary to COVID-19 pneumonia Suspected bacterial superinfection/pneumonia Diabetes mellitus type 2, insulin-dependent History of CAD, s/p CABG Weaned off oxygen Continue p.o. steroids Blood pressure improved/stable Blood cultures remain negative, de-escalated antibiotics to p.o. Levaquin on 07/05 With mild leukocytosis, elevated procalcitonin. Leukocytosis may be secondary to steroids, patient does not recall if he was being treated with steroids in nursing home or not consulting services project manager consulted to assist with disposition Patient currently without a home / place to stay Called family members phone number that patient gave me, no answer No local shelters are currently open/available VTE: Lovenox Code: Full Dispo: consulting services project manager consulted, assisting with finding a place the patient to go Otherwise seems medically stable for discharge, does not require oxygen Time Spent Managing Pts Care (In Minutes): 35
[2021-07-06] MEDS: INSULIN -REGULAR HUMAN 50 UNIT/0.5 ML ML SQ SCH ×4 (08:52→21:00)
[2021-07-06] MEDS: ENOXAPARIN 40 MG/0.4 ML SQ SCH (08:53)
[2021-07-06] MEDS: PANTOPRAZOLE 40MG TABLET PO SCH (08:53)
[2021-07-06] MEDS: levoFLOXacin 750 MG TAB PO SCH (08:53)
[2021-07-06] MEDS: predniSONE 20 MG TAB PO SCH ×2 (08:53→21:12)
[2021-07-06] MEDS: GLUCERNA SHAKE 237 ML CAN PO SCH (21:00)
[2021-07-07] MEDS ORDERED: DOCUSATE NA 100 MG CAP PO ONE (01:11)
[2021-07-07] MEDS: predniSONE 20 MG TAB PO SCH ×2 (08:08→19:43)
[2021-07-07] MEDS: GLUCERNA SHAKE 237 ML CAN PO SCH ×2 (08:08→19:43)
[2021-07-07] MEDS: ENOXAPARIN 40 MG/0.4 ML SQ SCH (08:08)
[2021-07-07] MEDS: PANTOPRAZOLE 40MG TABLET PO SCH (08:08)
[2021-07-07] MEDS: levoFLOXacin 750 MG TAB PO SCH (08:08)
[2021-07-07] MEDS: BENZONATATE 100 MG CAP PO PRN (08:09)
[2021-07-07] MEDS: INSULIN -REGULAR HUMAN 50 UNIT/0.5 ML ML SQ SCH ×4 (09:15→21:00)
--- NOTE | 2021-07-07 18:15 | P.PN ---
Date of Service: 07/07/21 Subjective: No acute events overnight. Remains on room air, breathing comfortably No new symptoms/complaints trying to find place to stay, can't stay with family, has nobody else ROS: 10 point ROS as noted above, otherwise negative Physical exam GEN: Alert, oriented, NAD HEENT: Normal conjunctiva, sclera anicteric CV: Regular rate and rhythm, no edema Pulm: Nonlabored respirations on RA ABD: Soft, nontender, nondistended Neuro: Normal speech, normal affect Problem List Acute hypoxemic respiratory failure secondary to COVID-19 pneumonia Suspected bacterial superinfection/pneumonia Diabetes mellitus type 2, insulin-dependent History of CAD, s/p CABG Weaned off oxygen Continue p.o. steroids Blood pressure improved/stable Blood cultures remain negative, de-escalated antibiotics to p.o. Levaquin on 07/05 With mild leukocytosis, elevated procalcitonin. Leukocytosis may be secondary to steroids, patient does not recall if he was being treated with steroids in long-term or not disabilities services officer consulted to assist with disposition Patient currently without a home / place to stay Called family members phone number that patient gave me, no answer No local shelters are currently open/available VTE: Lovenox Code: Full Dispo: disabilities services officer consulted, assisting with finding a place the patient to go Otherwise medically stable for discharge, does not require oxygen Time Spent Managing Pts Care (In Minutes): 35
--- NOTE | 2021-07-08 06:38 | P.PN ---
Date of Service: 07/08/21 Subjective: Having some dizziness the last 24 hours, never participate much with physical therapy yesterday States dizziness occurs mostly when sitting up or standing, resolves after lay back down Blood pressure have been borderline low ROS: 10 point ROS as noted above, otherwise negative Physical exam GEN: Alert, oriented, NAD HEENT: Normal conjunctiva, sclera anicteric CV: Regular rate and rhythm, no edema Pulm: Nonlabored respirations on RA ABD: Soft, nontender, nondistended Neuro: Normal speech, normal affect Problem List Acute hypoxemic respiratory failure secondary to COVID-19 pneumonia Suspected bacterial superinfection/pneumonia Diabetes mellitus type 2, insulin-dependent History of CAD, s/p CABG Weaned off oxygen Continue p.o. steroids Blood pressure soft will check orthostatics, suspect this is why he was feeling dizzy. Will need IV fluids Blood cultures remain negative, de-escalated antibiotics to p.o. Levaquin on 07/05 surgical services manager consulted to assist with disposition Patient currently without a home / place to stay Family state patient cannot stay with any of them No local shelters are currently open/available VTE: Lovenox Code: Full Dispo: surgical services manager consulted, assisting with finding a place the patient to go Patient with dizziness, low blood pressure, anticipate stable for dc in ~24hrs Time Spent Managing Pts Care (In Minutes): 35
[2021-07-08] MEDS: INSULIN -REGULAR HUMAN 50 UNIT/0.5 ML ML SQ SCH ×4 (08:37→20:57)
[2021-07-08] MEDS: METFORMIN HCL 500 MG TAB PO SCH ×2 (08:37→17:35)
[2021-07-08] MEDS: levoFLOXacin 750 MG TAB PO SCH (08:37)
[2021-07-08] MEDS: GLUCERNA SHAKE 237 ML CAN PO SCH ×2 (08:38→20:56)
[2021-07-08] MEDS: ENOXAPARIN 40 MG/0.4 ML SQ SCH (08:38)
[2021-07-08] MEDS: predniSONE 20 MG TAB PO SCH ×2 (08:38→20:56)
[2021-07-08] MEDS: BENZONATATE 100 MG CAP PO PRN (08:38)
[2021-07-08] MEDS: PANTOPRAZOLE 40MG TABLET PO SCH (08:38)
[2021-07-08] MEDS ORDERED: NA CHLORIDE 0.9% 500 ML IV ONE (16:14)
[2021-07-08] MEDS: NA CHLORIDE 0.9% 1,000 ML IV SCH (17:08)
[2021-07-09] MEDS: NA CHLORIDE 0.9% 1,000 ML IV SCH ×2 (05:39→19:40)
--- NOTE | 2021-07-09 06:30 | P.PN ---
Date of Service: 07/09/21 Subjective: Patient positive orthostatic vitals yesterday, significant dizziness Received fluid bolus yesterday, and continuous IV fluids overnight with improvement Still with some dizziness, feels unsteady to get up Awaiting physical therapy ROS: 10 point ROS as noted above, otherwise negative Physical exam GEN: Alert, oriented, NAD HEENT: Normal conjunctiva, sclera anicteric CV: Regular rate and rhythm, no edema Pulm: Nonlabored respirations on RA ABD: Soft, nontender, nondistended Neuro: Normal speech, normal affect, str 5/5 all extremities, no nystagmus, PERRL Problem List Acute hypoxemic respiratory failure secondary to COVID-19 pneumonia Suspected bacterial superinfection/pneumonia Orthostatic hypotension Diabetes mellitus type 2, insulin-dependent History of CAD, s/p CABG Weaned off oxygen Continue p.o. steroids Blood cultures remain negative, de-escalated antibiotics to p.o. Levaquin on 07/05 +orthostatic, improved partially with IVF continue IVF, repeat orthostatics PT consulted professional services consultant consulted to assist with disposition Patient currently without a home / place to stay Family state patient cannot stay with any of them No local shelters are currently open/available VTE: Lovenox Code: Full Dispo: professional services consultant consulted, assisting with finding a place the patient to go Patient with dizziness, +orthostatics, anticipate stable for dc in ~24hrs Time Spent Managing Pts Care (In Minutes): 35
[2021-07-09 06:52] LABS: Hematocrit 36.2 % (39.6-49.0); MPV 9.4 fL (7.6-11.3); RBC Red Blood Cell Count 4.54 M/uL (4.33-5.43)
[2021-07-09 07:12] LABS: BUN Blood Urea Nitrogen 17 mg/dL (7-18); Bicarbonate 28 mmol/L (21-32); Glucose Level 274 mg/dL (74-106); Potassium 4.5 mmol/L (3.5-5.1); Sodium Level 132 mmol/L (136-145)
[2021-07-09 07:35] LABS: C-Reactive Protein < 2.90 mg/L (<3.00)
[2021-07-09] MEDS: levoFLOXacin 750 MG TAB PO SCH (07:50)
[2021-07-09] MEDS: ENOXAPARIN 40 MG/0.4 ML SQ SCH (07:50)
[2021-07-09] MEDS: METFORMIN HCL 500 MG TAB PO SCH ×2 (07:50→17:02)
[2021-07-09] MEDS: PANTOPRAZOLE 40MG TABLET PO SCH (07:50)
[2021-07-09] MEDS: BENZONATATE 100 MG CAP PO PRN (07:50)
[2021-07-09] MEDS: predniSONE 20 MG TAB PO SCH (07:50)
[2021-07-09] MEDS: GLUCERNA SHAKE 237 ML CAN PO SCH ×2 (07:51→21:00)
[2021-07-09] MEDS: INSULIN -REGULAR HUMAN 50 UNIT/0.5 ML ML SQ SCH ×4 (07:51→21:00)
--- NOTE | 2021-07-10 06:27 | P.PN ---
Date of Service: 07/10/21 Subjective: Patient reports feeling better today, less dizzy, able to sit up most times without some dizziness. Has not been out of bed Waiting for physical therapy today ROS: 10 point ROS as noted above, otherwise negative Physical exam GEN: Alert, oriented, NAD HEENT: Normal conjunctiva, sclera anicteric CV: Regular rate and rhythm, no edema Pulm: Mild labored respirations on RA ABD: Soft, nontender, nondistended Neuro: Normal speech, normal affect, str 5/5 all extremities, no nystagmus, PERRL Problem List Acute hypoxemic respiratory failure secondary to COVID-19 pneumonia Suspected bacterial superinfection/pneumonia Orthostatic hypotension Diabetes mellitus type 2, insulin-dependent History of CAD, s/p CABG Weaned off oxygen Continue p.o. steroids Blood cultures remain negative, de-escalated antibiotics to p.o. Levaquin on 07/05 +orthostatic, improving with IVF Awaiting for physical therapy reevaluation today, patient continues with some dizziness with change of position sales representative facility services consulted to assist with disposition Patient currently without a home / place to stay Family state patient cannot stay with any of them No local shelters are currently open/available, no shelters in [facility] either VTE: Lovenox Code: Full Dispo: sales representative facility services consulted, unable to find a place for patient to go Patient with dizziness, +orthostatics, improving, anticipate dc in ~24hrs Discussed with patient today that he will need to make arrangements for likely discharge tomorrow Time Spent Managing Pts Care (In Minutes): 35
[2021-07-10] MEDS: INSULIN -REGULAR HUMAN 50 UNIT/0.5 ML ML SQ SCH ×4 (07:30→20:13)
[2021-07-10] MEDS: PANTOPRAZOLE 40MG TABLET PO SCH (08:00)
[2021-07-10] MEDS: GLUCERNA SHAKE 237 ML CAN PO SCH ×2 (09:00→19:57)
[2021-07-10] MEDS: NA CHLORIDE 0.9% 1,000 ML IV SCH ×2 (09:00→19:58)
[2021-07-10] MEDS: METFORMIN HCL 500 MG TAB PO SCH ×2 (09:00→17:28)
[2021-07-10] MEDS: ENOXAPARIN 40 MG/0.4 ML SQ SCH (09:28)
[2021-07-10] MEDS: predniSONE 20 MG TAB PO SCH (09:29)
[2021-07-10] MEDS: levoFLOXacin 750 MG TAB PO SCH (09:29)
[2021-07-11 03:56] LABS: Absolute Lymphocytes (CBC) 1.1 K/uL (0.7-4.9); Hematocrit 36.9 % (39.6-49.0); Lymphocytes % 13.6 % (15.3-44.8); MPV 9.5 fL (7.6-11.3)
[2021-07-11 04:07] VITALS: O2SAT 95
[2021-07-11 04:15] LABS: BUN Blood Urea Nitrogen 17 mg/dL (7-18); Bicarbonate 31 mmol/L (21-32); Glucose Level 142 mg/dL (74-106); Potassium 4.2 mmol/L (3.5-5.1); Sodium Level 136 mmol/L (136-145)
[2021-07-11] MEDS: INSULIN -REGULAR HUMAN 50 UNIT/0.5 ML ML SQ SCH ×3 (07:30→16:12)
[2021-07-11] MEDS: GLUCERNA SHAKE 237 ML CAN PO SCH (09:00)
[2021-07-11] MEDS: ENOXAPARIN 40 MG/0.4 ML SQ SCH (10:06)
[2021-07-11] MEDS: predniSONE 20 MG TAB PO SCH (10:06)
[2021-07-11] MEDS: METFORMIN HCL 500 MG TAB PO SCH ×2 (10:06→16:12)
[2021-07-11] MEDS: NA CHLORIDE 0.9% 1,000 ML IV SCH (11:40)
[2021-07-11 12:18] LABS: Magnesium 1.7
--- NOTE | 2021-07-11 14:05 | P.DS ---
Admission Date: 07/03/21 Discharge Date: 07/11/21 Primary Care Provider: None Disposition: ROUTINE DISCHARGE Discharge Condition: FAIR Reason for Admission: COVID-19 Pneumonia Brief History of Present Illness: 60-year-old -[place] male with history of CAD, diabetes mellitus type 2insulin-dependent, hypertension presented to the emergency department for shortness of breath. Patient was reportedly recently admitted at [facility] for Covid pneumonia, patient reports that he spent 3 to 4 weeks at [facility] and was discharged on home oxygen back to [facility] but was released from [facility] without oxygen, patient was brought into our emergency department for further evaluation. Patient found to be mildly hypoxic satting around 88 to 89% on room air. Patient with mild leukocytosis, tolerating to the cannula well around 2 L at this time. Patient also without place to be discharged at this time reports that he was previously staying with his sister but she kicked him out, his mother lives in [place], also reports he has some friends in the area. Patient hospitalized for further management. Hospital Course: Problem List Acute hypoxemic respiratory failure secondary to COVID-19 pneumonia Suspected bacterial superinfection/pneumonia Diabetes mellitus type 2, insulin-dependent History of CAD, s/p CABG Patient weaned off oxygen he was treated with steroids for the COVID Pneumona Blood cultures remain negative, treated with antibiotics for possible superimposed bacterial pneumonia He was complaining of dizziness, but this improved with IV fluid He tolerated physical therapy. director of services was involved in his disposition. Apparently I was told all the shelters in [place] are closed. Patient stated today he has some friends in the area to live wait for the meantime. He also stated he can arrange a ride on discharge. He has clinically improved, dizziness have improved and patient deemed stable for discharge. Vital Signs/Physical Exam: Temp Pulse Resp BP Pulse Ox 98.2 F 78 18 117/61 96 07/11/21 12:00 07/11/21 12:00 07/11/21 12:00 07/11/21 12:07/11/21 12:00 General: Alert, In no apparent distress, Oriented x3 HEENT: PERRLA, Mucous membr. moist/pink, EOMI Neck: JVD not distended Respiratory: Other (Nonlabored breathing) Cardiovascular: No edema, Regular rate/rhythm, Normal S1 S2 Gastrointestinal: Soft and benign, Non-distended, No tenderness Musculoskeletal: No swelling Integumentary: No rashes, No cyanosis Neurological: Other (No focal motor deficit) Laboratory Data at Discharge: WBC 7.80 K/uL (4.3-10.9) 07/11/21 03:08 Hgb 11.9 g/dL (13.6-17.9) L 07/11/21 03:08 Hct 36.9 % (39.6-49.0) L 07/11/21 03:08 Plt Count 271 K/uL (152-406) D 07/11/21 03:08 PT 14.2 SECONDS (9.5-12.5) H 07/03/21 21:58 INR 1.23 07/03/21 21:58 Sodium 136 mmol/L (136-145) 07/11/21 03:08 Potassium 4.2 mmol/L (3.5-5.1) 07/11/21 03:08 BUN 17 mg/dL (7-18) 07/11/21 03:08 Creatinine 0.78 mg/dL (0.55-1.3) 07/11/21 03:08 Glucose 142 mg/dL (74-106) H 07/11/21 03:08 Magnesium 1.7 07/11/21 03:08 Total Bilirubin 0.2 mg/dL (0.2-1.0) 07/06/21 03:01 AST 13 U/L (15-37) L 07/06/21 03:01 ALT 23 U/L (12-78) 07/06/21 03:01 Alkaline Phosphatase 108 U/L (45-117) 07/06/21 03:01 Triglycerides 71 mg/dL (<150) 07/04/21 03:24 Cholesterol 169 mg/dL (<200) 07/04/21 03:24 HDL Cholesterol 33 mg/dL (40-60) L 07/04/21 03:24 Cholesterol/HDL Ratio 5.12 07/04/21 03:24 Home Medications: Glimepiride [Amaryl] 1 mg PO BID #0 tablet 07/18/11 Aspirin Chewable 81 mg PO DAILY #30 07/11/21 Cholecalciferol (Vitamin D3) [Vitamin D3] 2,000 unit PO DAILY #60 capsule 07/11/21 Zinc Sulfate [Zinc Sulfate*] 220 mg PO BID #30 cap 07/11/21 predniSONE [Prednisone*] 20 mg PO DAILY #5 tab 07/11/21 New Medications: Aspirin Chewable 81 mg PO DAILY #30 predniSONE [Prednisone*] 20 mg PO DAILY #5 tab Cholecalciferol (Vitamin D3) [Vitamin D3] 2,000 unit PO DAILY #60 capsule Zinc Sulfate [Zinc Sulfate*] 220 mg PO BID #30 cap Diet: AHA Activity: Ad damaso Followup: NONE,NONE [Primary Care Provider] - 1-2 Weeks Time spent managing pt's care (in minutes): 38
[2021-07-11 16:55] VITALS: BP 107/59; TEMP 97.9
== END 2021-07-11 18:30 | disposition home or self-care (01) | DRG 177 ==
LOC: ER 20:07 → ERHOLD 23:18 → 4TH 07-04 01:27
PROVIDERS: ADMIT Hospitalist; ATTEND Hospitalist
DX: U07.1 COVID-19 (principal); J12.82 Pneumonia due to coronavirus disease 2019; J96.01 Acute respiratory failure with hypoxia; J15.9 Unspecified bacterial pneumonia; I10 Essential (primary) hypertension; E11.9 Type 2 diabetes mellitus without complications; I25.10 Atherosclerotic heart disease of native coronary artery without angina pectoris; I95.1 Orthostatic hypotension; Z59.00 Homelessness unspecified; Z95.1 Presence of aortocoronary bypass graft
CPT/HCPCS: 36415; 71045; 80048; 80053; 80061; 80076; 80202; 81003; 82728; 82805; 82947; 83036; 83735; 83880; 84145; 84439; 84443; 84484; 85025; 85027; 85610; 86140; 87040; 93005; 96374; 96375; 97110; 97161; 97530; 99285; C9113; J0456; J1650; J2405; J2920; J2930; J3370; J7030; J7040; J7050; J7512; U0003

== ENCOUNTER 2021-10-19 04:08 | Emergency (ER) | payer OTHER, SELFPAY ==
[2021-10-19] MEDS ORDERED: ETOMIDATE 20 MG/10 ML VIAL IV ONE (04:09)
[2021-10-19] MEDS ORDERED: SUCCINYLCHOLINE 20 MG/ML (10 ML) IV ONE (04:09)
[2021-10-19] MEDS ORDERED: LORazepam 2 MG/ML VIAL ONE ×2 (04:27→05:22)
[2021-10-19] MEDS ORDERED: NA CHLORIDE 0.9% 500 ML ONE (04:27)
[2021-10-19 04:28] LABS: Arterial Blood Carboxyhemoglob 1.3 % (0-1.5); Blood Gas Oxyhemoglobin 88.4 % (94-97); Blood O2 Saturation 90.4 % (92-98.5)
[2021-10-19 04:31] LABS: Absolute Lymphocytes (CBC) 1.9 K/uL (0.7-4.9); Hematocrit 53.1 % (39.6-49.0); Lymphocytes % 36.6 % (15.3-44.8); MPV 8.9 fL (7.6-11.3); RBC Red Blood Cell Count 6.42 M/uL (4.33-5.43)
[2021-10-19] MEDS ORDERED: RSI MEDICATION KIT IV ONE (04:44)
[2021-10-19] MEDS ORDERED: propofoL 1,000 MG/100 ML VIAL IV ONE ×2 (04:44→10:37)
[2021-10-19 04:46] LABS: Urine Blood Negative (Negative); Urine Glucose 1+ (Negative); Urine Protein Negative (Negative); Urine Specific Gravity 1.015 (1.005-1.030); Urine pH 5.5 (5.0-7.0)
[2021-10-19 05:20] LABS: Barbiturates NEGATIVE (NEGATIVE); Benzodiazepines NEGATIVE (NEGATIVE); Cocaine POSITIVE (NEGATIVE); METHAMPHETAM NEGATIVE (NEGATIVE); Methadone NEGATIVE (NEGATIVE); Opiates NEGATIVE (NEGATIVE); Phencyclidine NEGATIVE (NEGATIVE); THC Cannibis NEGATIVE (NEGATIVE)
[2021-10-19 05:28] LABS: Urine Bacteria <20 /HPF (NONE SEEN)
[2021-10-19 05:29] LABS: Urine RBC <5 /HPF (NONE SEEN)
[2021-10-19 06:07] LABS: Albumin 3.3 g/dL (3.4-5.0); Bilirubin Total 0.3 mg/dL (0.2-1.0); Potassium 3.9 mmol/L (3.5-5.1); Troponin High Sensitivity 24.9 pg/mL (<58.9)
[2021-10-19] MEDS ORDERED: NA CHLORIDE 0.9% 100 ML ONE (06:46)
[2021-10-19] MEDS ORDERED: PIPERACIL/TAZO 3.375 GM VIAL IV ONE (06:46)
[2021-10-19] MEDS ORDERED: NA CHLORIDE 0.9% 250 ML ONE (06:57)
[2021-10-19] MEDS ORDERED: VANCOMYCIN 1 GM/VIAL ONE (06:57)
--- NOTE | 2021-10-19 07:09 | RAD REPORT ---
EXAM DESCRIPTION: CT - Head Brain Wo Cont - 10/19/2021 6:19 am CLINICAL HISTORY: Altered mental status, possible seizure COMPARISON: No comparisons TECHNIQUE: Axial 5 mm thick images of the head were obtained without IV contrast. All CT scans are performed using dose optimization technique as appropriate and may include automated exposure control or mA/KV adjustment according to patient size. FINDINGS: No intracranial hemorrhage is present and no focal mass lesion identified. There is no mid line shift or diffuse cerebral edema. A 2.8 centimeter area of decreased attenuation is in the medial left occipital lobe suspicious for acute or subacute CVA. There are no comparison studies for this p atient. No known prior CVA detailed in history. No significant atrophy changes noted. Chronic ischemic changes are moderately advanced for the patien t's age and scattered in the cerebral white matter. Thalamus, basal ganglia and brainstem tissues are generally spared any significant chronic ischemic change. No abnormal extra-axial fluid collections. Ventricles are normal. Mastoid air cells are clear. Scattered paranasal sinus mucosal thickening changes are present. Right deviation of the nasal septum is seen. Increased soft tissue in the nasopharynx is believed to be muc ous rather than a soft tissue mass. No acute bony findings. 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 Moderate severity chronic ischemic changes are present for patient age with no significant atrophy. No hemorrhage or focal mass lesion identified.
--- NOTE | 2021-10-19 07:22 | ER ---
Nurse's Notes [facility] Name: Jamin Baca Age: 61 yrs Sex: Male : 1960 Arrival Date: 10/19/2021 Time: 04:10 Bed 3 Private MD: Diagnosis: Cerebral infarction, unspecified-subacute;Altered mental status, unspecified;Cocaine abuse;Pneumonia, unspecified organism Presentation: 10/19 04:11 Chief complaint: EMS states: found pt in trailer, awake, responsive to painful stimuli, as6 not responding to questions. Coronavirus screen: At this time, the client does not indicate any symptoms associated with coronavirus-19. Ebola Screen: No symptoms or risks identified at this time. Initial Sepsis Screen: Does the patient meet any 2 criteria? Altered Mental Status. Does the patient have a suspected source of infection? No. Patient's initial sepsis screen is negative. Risk Assessment: Do you want to hurt yourself or someone else? Unable to obtain. Onset of symptoms is unknown. 04:11 Method Of Arrival: EMS: [facility] as6 04:11 Acuity: SERVANDO 2 as6 Historical: - Allergies: 11:06 methadone; jl7 - PMHx: 04:16 Coronary artery disease; diabetes mellitus; Hypertensive disorder; as6 - PSHx: 04:16 Coronary artery bypass graft; as6 - Immunization history:: Adult Immunizations unknown. - Social history:: Smoking status: unknown. - History obtained from: EMS. - Unable to obtain history due to: altered mental status. Screenin:16 Abuse screen: Denies threats or abuse. Denies injuries from another. Nutritional as6 screening: No deficits noted. Tuberculosis screening: No symptoms or risk factors identified. Fall Risk None identified. Assessment: 04:15 General: Appears distressed, Behavior is agitated, restless. Pain: Unable to use pain as6 scale. Patient is disoriented. Neuro: Arechiga Agitation-Sedation Scale (RASS): +1 Restless Level of Consciousness is awake, Oriented to none Pupils are constricted. Respiratory: Respiratory effort is labored, gasping, with retractions. Derm: Skin is diaphoretic, Skin temperature is cool. 07:00 Respiratory: Ventilator assessment: ET Tube: 7.5 23 cm at teeth Ventilator Mode: Assist as6 Control (AC) Tidal Volume: 460 Respiratory Rate: 16 FiO2: 45 PEEP: 5 HOB > 30 degrees. 07:20 Neuro: Arechiga Agitation-Sedation Scale (RASS): -5 Unarousable Level of Consciousness jh6 is unresponsive, Pupils are Pupil Size: 2mm sluggish, Reaction to noxious stimuli is none. GI: Abdomen is flat, Bowel sounds present X 4 quads. Abd is soft. 08:20 Reassessment: No changes from previously documented assessment. Patient and/or family jh6 updated on plan of care and expected duration. Pain level reassessed. no purposeful movement noted with noxious stimuli. 08:55 General: report given to Kathy BASILIO at [facility], room # 7404. 6 09:37 Reassessment: No changes from previously documented assessment. Patient and/or family jh6 updated on plan of care and expected duration. Pain level reassessed. Neuro: Arechiga Agitation-Sedation Scale (RASS): -4 Deep sedation. 10:30 Reassessment: [facility] at bedside for transport to [facility]. Pt without change jh6 and is sedated with Propofol at 40mcg. Pt opens eye but no purposeful movement or response to verbal stimuli. Pt moved to EMS pump and vent without issue or change in pts status. Vital Signs: 04:11 BP 143 / 105; Pulse 75; Resp 18 S; Temp 98.1(A); Pulse Ox 95% on R/A; Weight 72.57 kg; as6 Height 6 ft. 0 in. (182.88 cm); 04:41 BP 138 / 87; Pulse 80; Resp 20 S; as6 05:00 BP 195 / 111; Pulse 94; Resp 15 A; Pulse Ox 98% on 45% FiO2 ETT vent; as6 05:20 BP 146 / 61; Pulse 83; Resp 21 A; Pulse Ox 98% on 45% FiO2 ETT vent; as6 05:40 BP 130 / 87; Pulse 77; Resp 23 S; Pulse Ox 98% on 45% FiO2 ETT vent; as6 06:20 BP 141 / 56; Pulse 73; Resp 19 S; Temp 97.7(C); Pulse Ox 100% on 45% FiO2 ETT vent; as6 06:40 BP 144 / 57; Pulse 73; Resp 17 A; Temp 97.7(C); Pulse Ox 99% on 45% FiO2 ETT vent; as6 07:00 BP 139 / 55; Pulse 71; Resp 18 A; Temp 97.7(C); Pulse Ox 100% on 45% FiO2 ETT vent; as6 07:39 BP 148 / 47; Pulse 71; Resp 18; Temp 97.7; Pulse Ox 100% on ETT vent; Pain 0/10; jh6 08:39 BP 129 / 59; Pulse 76; Resp 16; Temp 97.3(C); Pulse Ox 100% on ETT vent; Pain 0/10; jh6 09:39 BP 132 / 86; Pulse 84; Resp 16; Temp 97.5(C); Pulse Ox 100% ; jh6 04:11 Body Mass Index 21.70 (72.57 kg, 182.88 cm) as6 ED Course: 04:10 Patient arrived in ED. rn 04:10 Corbin Santillan MD is Attending Physician. rn 04:11 Alfonzo Bolanos RN is Primary Nurse. as6 04:11 Maintain EMS IV. Dressing intact. Good blood return noted. Site clean \T\ dry. Gauge \T\ as 6 site: 20g LAC. 04:16 Triage completed. as6 04:17 Arm band placed on. as6 04:31 XRAY Chest (1 view) In Process Unspecified. EDMS 04:59 Assisted provider with intubation using 7.5 mm ETT via oral route. ET tube secured at as6 23cm at the teeth. Set up intubation tray. Intubated by Corbin Santillan MD Placement verified by CO2 detector w/ + color change, auscultating bilateral breath sounds, CXR, Patient tolerated well. 05:04 Velasquez cath inserted, using sterile technique, 16 Fr., by ED staff, balloon inflated, to as6 gravity drainage. 05:16 XRAY Chest (1 view) In Process Unspecified. EDMS 05:20 Assisted provider with central line placement. Set up central line tray. Triple lumen as6 line placed in right femoral. Line placed by Corbin Santillan MD Placement verified by blood return, Dressed with Tegaderm, Blood was collected. Patient tolerated well. 06:16 Bed in low position. Call light in reach. Side rails up X2. Client placed on continuous as6 cardiac and pulse oximetry monitoring. NIBP monitoring applied. 06:20 CT Head Brain wo Cont In Process Unspecified. EDMS 06:20 CT Aorta for Dissection In Process Unspecified. EDMS 07:12 Attending Physician role handed off by Corbin Santillan MD bean 07:12 Ricardo Christopher MD is Attending Physician. bean 07:15 transfer initiated with [facility]. em1 08:[address] [facility] accepted to room 7404. em1 11:07 Patient transferred, IV remains in place. intact, No redness/swelling at site. jl7 Administered Medications: 04:20 Drug: Ativan (LORazepam) 1 mg Route: IVP; Site: left antecubital; as6 04:20 Drug: NS 0.9% 500 ml Route: IV; Rate: bolus; Site: left antecubital; as6 04:57 Drug: Etomidate 20 mg Route: IVP; Site: left antecubital; as6 04:58 Drug: Succinylcholine 100 mg Route: IVP; Site: left antecubital; as6 05:03 Drug: Propofol 5 mcg/kg/min Route: IV; Rate: calculated rate; Site: left antecubital; as6 11:00 Follow up: IV Status: Infusion continued upon transfer jl7 05:14 Drug: Ativan (LORazepam) 2 mg Route: IVP; Site: left antecubital; as6 07:00 Follow up: Response: No adverse reaction jl7 06:58 Drug: vancoMYCIN 1 grams Route: IVPB; Infused Over: 2 hrs; Site: right femoral; as6 08:58 Follow up: Response: No adverse reaction; IV Status: Completed infusion; IV Intake: jl7 250ml 07:00 Drug: Zosyn (piperacillin-tazobactam) 3.375 grams Route: IVPB; Infused Over: 60 mins; as6 Site: right femoral; 08:00 Follow up: Response: No adverse reaction; IV Status: Completed infusion jl7 08:12 Follow up: IV Status: Completed infusion jh6 07:37 Drug: NS 0.9% 1000 ml Route: IV; Rate: 1 bolus; Site: left antecubital; jh6 08:30 Follow up: Response: No adverse reaction; IV Status: Completed infusion; IV Intake: jl7 1000ml 07:38 Drug: ProTONIX (pantoprazole) 40 mg Route: IVP; Site: left antecubital; jh6 11:00 Follow up: Response: No adverse reaction jl7 07:38 Drug: foLIC Acid 1 mg Route: IVPB; Site: left antecubital; 6 07:39 Follow up: Response: No adverse reaction; IV Status: Completed infusion jl7 07:42 Not Given (asprin on back ordere): Aspirin Suppository 300 mg ND once jh6 Medication: 06:22 VIS not applicable for this client. as6 Point of Care Testing: Blood Glucose: 04:16 Blood Glucose: 263 mg/dL; as6 Ranges: Intake: 08:30 IV: 1000ml; Total: 1000ml. jl7 08:58 IV: 250ml; Total: 1250ml. jl7 Outcome: 07:22 ER care complete, transfer ordered by . [facility] 11:07 Transferred by ground EMS to [facility], Transfer form completed. 7 11:07 critical 11:07 Discharge instructions given to EMS, Instructed on the need for transfer, Demonstrated understanding of instructions. 11:07 Patient left the ED. jl7 Signatures: Dispatcher [employer] EDMS Ricardo Christopher MD MD cha Nieto, Roman, MD MD rn Martinez, Eric em1 Raymond Patiño RN RN jl7 Alfonzo Bolanos RN RN as6 Pauline Barclay RN RN jh6 Corrections: (The following items were deleted from the chart) 11:20 09:37 Reassessment: No changes from previously documented assessment. Patient and/or jh6 family updated on plan of care and expected duration. Pain level reassessed. Patient is alert, oriented x 3, equal unlabored respirations, skin warm/dry/pink. 6 11:21 07:20 Cardiovascular: Capillary refill < 3 seconds JVD is absent Patient's skin is warm jh6 and dry. Pulses are all present. Rhythm is sinus rhythm 6 11:21 08:20 Reassessment: No changes from previously documented assessment. Patient and/or jh6 family updated on plan of care and expected duration. Pain level reassessed. Patient is alert, oriented x 3, equal unlabored respirations, skin warm/dry/pink. no purposeful movement noted with noxious stimuli 6
--- NOTE | 2021-10-19 07:22 | EDPHYS ---
Physician Documentation [facility] Name: Jamin Baca Age: 61 yrs Sex: Male : 1960 Arrival Date: 10/19/2021 Time: 04:10 Bed 3 Private MD: ED Physician Ricardo Christopher HPI: 10/19 04:15 This 61 yrs old Black Male presents to ER via Unassigned with complaints of AMS. rn 04:15 The patient presents with decreased mental status, decreased responsiveness. Onset: The rn symptoms/episode began/occurred at an unknown time. Possible causes: unknown. Current symptoms: In the emergency department the patient's symptoms are unchanged from the initial presentation. It is unknown whether or not the patient has had similar symptoms in the past. Per EMS, neighbor called 911 after hearing patient moaning and checking on him, noted decreased responsiveness or AMS. EMS reports showed some brief purposeful movements, but never spoke. no meds given, no other information given by EMS. . Historical: - Allergies: 11:06 methadone; jl7 - PMHx: 04:16 Coronary artery disease; diabetes mellitus; Hypertensive disorder; as6 - PSHx: 04:16 Coronary artery bypass graft; as6 - Immunization history:: Adult Immunizations unknown. - Social history:: Smoking status: unknown. - History obtained from: EMS. - Unable to obtain history due to: altered mental status. ROS: 04:15 Unable to obtain ROS due to altered mental status. rn Exam: 04:15 Constitutional: Thin male, diaphoretic, eyes open, deviated to the left, not speaking rn Head/Face: Normocephalic, atraumatic. Eyes: Eyes 2mm, no nystagmus, deviated to left Cardiovascular: Regular rate and rhythm. No pulse deficits. Respiratory: + mild tachypnea, no retractions Abdomen/GI: soft, non-tender Skin: Diaphoretic from neck up MS/ Extremity: Pulses equal, no cyanosis Neuro: Awake, groaning, all 4 extremities tense, no gross seizure activity, does not follow commands Vital Signs: 04:11 BP 143 / 105; Pulse 75; Resp 18 S; Temp 98.1(A); Pulse Ox 95% on R/A; Weight 72.57 kg; as6 Height 6 ft. 0 in. (182.88 cm); 04:41 BP 138 / 87; Pulse 80; Resp 20 S; as6 05:00 BP 195 / 111; Pulse 94; Resp 15 A; Pulse Ox 98% on 45% FiO2 ETT vent; as6 05:20 BP 146 / 61; Pulse 83; Resp 21 A; Pulse Ox 98% on 45% FiO2 ETT vent; as6 05:40 BP 130 / 87; Pulse 77; Resp 23 S; Pulse Ox 98% on 45% FiO2 ETT vent; as6 06:20 BP 141 / 56; Pulse 73; Resp 19 S; Temp 97.7(C); Pulse Ox 100% on 45% FiO2 ETT vent; as6 06:40 BP 144 / 57; Pulse 73; Resp 17 A; Temp 97.7(C); Pulse Ox 99% on 45% FiO2 ETT vent; as6 07:00 BP 139 / 55; Pulse 71; Resp 18 A; Temp 97.7(C); Pulse Ox 100% on 45% FiO2 ETT vent; as6 07:39 BP 148 / 47; Pulse 71; Resp 18; Temp 97.7; Pulse Ox 100% on ETT vent; Pain 0/10; jh6 08:39 BP 129 / 59; Pulse 76; Resp 16; Temp 97.3(C); Pulse Ox 100% on ETT vent; Pain 0/10; jh6 09:39 BP 132 / 86; Pulse 84; Resp 16; Temp 97.5(C); Pulse Ox 100% ; jh6 04:11 Body Mass Index 21.70 (72.57 kg, 182.88 cm) as6 Procedures: 05:02 Intubation: Ventilated with 100% NRB prior to procedure. O2 saturation prior to learning specialist was 90 %. Intubated orally using # 4 Compa blade with 7.5 mm ETT. was successful on first attempt. Ventilated with Ambu bag. Cricoid pressure applied during procedure. Tube secured with ETT kapadia at right side of mouth measured 23 cm at teeth. Placement verified by CXR, CO2 detector with (+) color change, auscultating bilateral breath sounds, O2 saturation after procedure was 94 %. Patient tolerated well. 05:22 Central Line: the site was prepped with Betadine, in sterile fashion, a triple lumen rn catheter was inserted, in the right femoral vein, in 1 attempts. placement was verified, by blood return, the site was dressed with Tegaderm, using sterile technique, the patient tolerated the procedure, well. MDM: 04:10 Patient medically screened. rn 05:22 ED course: Pt intubated for airway protection, minimally responsive, bloody sputum and rn foaming at mouth, no seizure activity noted, central line placed for access. . 07:22 Differential Diagnosis: CVA, electrolyte abnormality, hypoglycemia, intracranial bleed, bean pneumonia, seizure, sepsis, UTI, volume depletion. Data reviewed: vital signs, nurses notes, EMS record, lab test result(s), EKG, radiologic studies, CT scan, plain films. Data interpreted: laboratory monitor: rate is 75 beats/min, rhythm is regular, Pulse oximetry: on room air is 95 %. Test interpretation: by ED physician or midlevel provider: ECG, plain radiologic studies. Counseling: I had a detailed discussion with the patient and/or guardian regarding: the historical points, exam findings, and any diagnostic results supporting the discharge/admit diagnosis, lab results, radiology results, the need to transfer to another facility, for higher level of care, [facility] does not immediately have the required specialist. 10/19 04:12 Order name: CBC with Diff; Complete Time: 04:37 rn 10/19 04:12 Order name: CMP; Complete Time: 06:21 rn 10/19 04:12 Order name: Urine Microscopic Only; Complete Time: 05:32 rn 10/19 04:14 Order name: Troponin High Sensitivity; Complete Time: 06:21 rn 10/19 04:19 Order name: ABG; Complete Time: 04:47 rn 10/19 04:19 Order name: Lactate; Complete Time: 06:21 rn 10/19 04:19 Order name: Blood Culture Adult (2) rn 10/19 04:21 Order name: Urine Drug Screen; Complete Time: 05:27 rn 10/19 04:21 Order name: Urine Culture rn 10/19 04:24 Order name: ETOH Level; Complete Time: 06:02 rn 10/19 04:26 Order name: Glucose, Ancillary Testing; Complete Time: 04:37 EDMS 10/19 04:32 Order name: SARS-COV-2 RT PCR (Document "Date of Onset" if Symptomatic) rn 10/19 04:32 Order name: Flu; Complete Time: 07:04 rn 10/19 04:46 Order name: Urine Dipstick-Ancillary; Complete Time: 04:47 EDMS 10/19 04:12 Order name: CT Head Brain wo Cont; Complete Time: 07:17 rn 10/19 04:12 Order name: XRAY Chest (1 view) rn 10/19 04:12 Order name: CT Aorta for Dissection; Complete Time: 08:33 rn 10/19 05:02 Order name: XRAY Chest (1 view) rn 10/19 07:00 Order name: CREATININE WHOLE BLOOD; Complete Time: 07:04 EDMS 10/19 04:12 Order name: IV Start; Complete Time: 04:17 rn 10/19 04:12 Order name: Urine Dipstick-Ancillary (obtain specimen); Complete Time: 05:45 rn 10/19 04:12 Order name: Cardiac monitoring; Complete Time: 04:17 rn 10/19 04:12 Order name: EKG; Complete Time: 04:13 rn 10/19 04:12 Order name: EKG - Nurse/Tech; Complete Time: 04:49 rn 10/19 04:12 Order name: Glucose Level; Complete Time: 04:17 rn 10/19 04:12 Order name: O2 Sat Monitoring; Complete Time: 04:17 rn Administered Medications: 04:20 Drug: Ativan (LORazepam) 1 mg Route: IVP; Site: left antecubital; as6 04:20 Drug: NS 0.9% 500 ml Route: IV; Rate: bolus; Site: left antecubital; as6 04:57 Drug: Etomidate 20 mg Route: IVP; Site: left antecubital; as6 04:58 Drug: Succinylcholine 100 mg Route: IVP; Site: left antecubital; as6 05:03 Drug: Propofol 5 mcg/kg/min Route: IV; Rate: calculated rate; Site: left antecubital; as6 11:00 Follow up: IV Status: Infusion continued upon transfer jl7 05:14 Drug: Ativan (LORazepam) 2 mg Route: IVP; Site: left antecubital; as6 07:00 Follow up: Response: No adverse reaction 7 06:58 Drug: vancoMYCIN 1 grams Route: IVPB; Infused Over: 2 hrs; Site: right femoral; as6 08:58 Follow up: Response: No adverse reaction; IV Status: Completed infusion; IV Intake: jl7 250ml 07:00 Drug: Zosyn (piperacillin-tazobactam) 3.375 grams Route: IVPB; Infused Over: 60 mins; as6 Site: right femoral; 08:00 Follow up: Response: No adverse reaction; IV Status: Completed infusion jl7 08:12 Follow up: IV Status: Completed infusion 6 07:37 Drug: NS 0.9% 1000 ml Route: IV; Rate: 1 bolus; Site: left antecubital; 6 08:30 Follow up: Response: No adverse reaction; IV Status: Completed infusion; IV Intake: jl7 1000ml 07:38 Drug: ProTONIX (pantoprazole) 40 mg Route: IVP; Site: left antecubital; 6 11:00 Follow up: Response: No adverse reaction jl7 07:38 Drug: foLIC Acid 1 mg Route: IVPB; Site: left antecubital; 6 07:39 Follow up: Response: No adverse reaction; IV Status: Completed infusion jl7 07:42 Not Given (asprin on back ordere): Aspirin Suppository 300 mg ID once jh6 Point of Care Testing: Blood Glucose: 04:16 Blood Glucose: 263 mg/dL; as6 Ranges: Critical Glucose Levels:Adult <50 mg/dl or >400 mg/dl <40 mg/dl or >180 mg/dl Disposition Summary: 10/19/21 07:22 Transfer Ordered Transfer Location: [facility] bean Reason: Higher level of care bean Condition: Critical bean Problem: new bean Symptoms: have improved bean Accepting Physician: to [facility] ich(10/19/21 11:07) jl7 Diagnosis - Cerebral infarction, unspecified - subacute bean - Altered mental status, unspecified bean - Cocaine abuse bean - Pneumonia, unspecified organism bean Forms: - Medication Reconciliation Form bean - SBAR form bean Signatures: Dispatcher [employer] EDRicardo Perez MD MD cha Nieto, Roman, MD MD rn Leal, Jahala, RN RN jl7 Alfonzo Bolanos RN RN as6 Pauline Barclay RN RN jh6 Radha Hoffmann RN RN vc1 Corrections: (The following items were deleted from the chart) 11:07 07:22 to [facility] ich bean jl7
--- NOTE | 2021-10-19 07:24 | RAD REPORT ---
EXAM DESCRIPTION: CT - Angio Aorta For Dissection - 10/19/2021 6:19 am CLINICAL HISTORY: HTN, AMS, diaphoretic COMPARISON: Portable chest 10/19/2021, CT abdomen and pelvis 06/10/2014 TECHNIQUE: Dynamically enhanced 3 mm thick images of the chest, abdomen, and upper pelvis were obtai bernardo during administration of approximately 150mL Isovue 370 IV contrast. Sagittal and coronal reconst ruction images were generated using MIP and reviewed. Exam utilizes a protocol to evaluate entire cou rse of the aorta. All CT scans are performed using dose optimization technique as appropriate and may include automated exposure control or mA/KV adjustment according to patient size. FINDINGS: Contrast opacification in the thoracic aorta is not optimal. However, there is wall-to-wal l homogeneous opacification seen. Aortic wall atherosclerotic calcifications are present throughout t he aorta more prominent in the distal aorta and into the iliac vasculature. No centrally displaced ca lcification, aneurysm, dissection or other acute aortoiliac finding. No aortic arch great vessel orig in abnormality seen. Pulmonary artery enhancement is similarly diminished. Central pulmonary embolus is not identified. He art size is upper normal. No pericardial effusion or thickening. Coronary artery calcifications are p resent. Endotracheal tube is in place with the tip at the aortic arch level 3-4 cm above the karen. The NG/O G tube seen on the earlier chest film has been removed. Increased opacification is noted in each main stem bronchus probably mucous. Aspiration cannot be excluded. No one dense mass or area of consolidation seen. Interstitial thickening is evident some of which is due to respiratory motion artifact. A few very small patchy areas of airspace opacification present w hich could be atelectasis, infiltrate or very minimal edema. No pleural based mass. Calcified pleural plaquing changes are present in the posterior gutter on the left. No pneumothorax or pleural effusio n. No large mediastinal or hilar suspicious mass. Large coarse calcifications seen at the right hilum. N o chest wall mass or abnormal axillary lymphadenopathy. Patient has a single large diameter mesenteric vessel that is likely a normal anatomic variant single vessel rather than discrete celiac and superior mesenteric vessels. Single renal artery supply each kidney with no stenosis identified. No focal abnormality in the solid abdominal viscera. Gallbladder and biliary tree within normal limits. Moderate stool volume is seen throughout the colon. Sigmoid co joe is tortuous and redundant looping into the anterior upper abdomen. Fecalized bowel content is see n in the distal ileum. No mass or abnormal lymphadenopathy. No free air, free fluid or inflammatory stranding. Urinary bladder shows significant circumferential wall thickening. There is a Velasquez cathet er in place with the bladder partially contracted. However, bladder islas appear thickened even for t his degree of bladder contraction. Possible wall mass cannot be accurately assessed. This could be ch ronic wall thickening due to a prostatic urethral outlet obstruction possibly cystitis. Disc and bone degenerative changes are present. Surgical hardware is present in the proximal femur. L ower lumbar facet joint degenerative change is very advanced for age. Acute or pathologic bone proces s not identified. Sternotomy wires are in place. IMPRESSION: Aortic atherosclerotic calcification most pronounced in the distal aorta and iliac vascu lature. No aneurysm, dissection or acute vascular finding identifiable. Interstitial thickening and patchy airspace opacities that are nonspecific. This could be interstitia l edema, patchy pneumonia changes or less likely aspiration. No one focal area of consolidation or quinones spicious mass. NG/OG tube has been removed since the earlier chest film. Endotracheal tube is in good position with the tip at the aortic arch level. Significant circumferential wall thickening of the urinary bladder only partially explained by contra ction. Cystitis is possible in the acute setting. This could be bladder wall hypertrophy due to chron ic prostatic urethral obstruction Additional nonacute findings detailed in the body of the report.
[2021-10-19] MEDS ORDERED: PANTOPRAZOLE 40 MG INJ ONE (07:33)
[2021-10-19] MEDS ORDERED: NA CHLORIDE 0.9% 1,000 ML ONE (07:33)
[2021-10-19] MEDS ORDERED: FOLIC ACID 5 MG/ML VIAL ONE (07:34)
--- NOTE | 2021-10-19 07:37 | EKG ---
Test Date: 2021-10-19 Test Time: 04:20:31 Information Systems Analyst: IVY MEASUREMENT RESULTS: Intervals: Rate: 73 ID: [id number] QRSD: 108 QT: 374 QTc: 412 [place]: P: 69 ID: [id number] QRS: 83 T: -37 INTERPRETIVE STATEMENTS: Normal sinus rhythm with sinus arrhythmia Incomplete left bundle branch block ST & T wave abnormality, consider lateral ischemia Abnormal ECG Compared to ECG 07/03/2021 23:22:57 Left bundle-branch block now present Ventricular premature complex(es) no longer present ST (T wave) deviation still present Possible ischemia still present Electronically Signed On 10-19-21 07:36:54 CDT by Will Simmons
--- NOTE | 2021-10-19 11:23 | RAD REPORT ---
EXAM DESCRIPTION: RAD - Chest Single View - 10/19/2021 4:29 am CLINICAL HISTORY: The patient is 61 years old and is Male; AMS TECHNIQUE: Frontal view of the chest. COMPARISON: No relevant prior studies available. FINDINGS: Lungs: Scattered interstitial opacities suggestive of interstitial edema or pneumonia. Pleural space: Unremarkable. No pneumothorax. Heart: Unremarkable. Mediastinum: Postsurgical changes in the mediastinum. Bones/joints: Unremarkable. IMPRESSION: Scattered interstitial opacities suggestive of interstitial edema or pneumonia. Electronically signed by: Samuel Elmore MD 10/19/2021 4:45 AM CDT Due to temporary technical issues with the PACS/Fluency reporting system, reports are being signed by the in house radiologist without review as a courtesy to ensure prompt reporting. The interpreting r adiologist is fully responsible for the content of the report.
[2021-10-19 11:26] VITALS: O2SAT 100
--- NOTE | 2021-10-19 11:28 | RAD REPORT ---
EXAM DESCRIPTION: RAD - Chest Single View - 10/19/2021 5:14 am CLINICAL HISTORY: The patient is 61 years old and is Male; post intubation TECHNIQUE: Frontal view of the chest. COMPARISON: October 19, 2021 4:26 AM FINDINGS: Lungs: Scattered interstitial opacities bilaterally, similar to prior. Pleural space: Unremarkable. No pneumothorax. Heart: Unremarkable. Mediastinum: Unremarkable. Bones/joints: Median sternotomy wires. Tubes, lines and devices: There is the suggestion of a nasogastric tube in the airway with tip e xtending down the right mainstem bronchus. Endotracheal tube with tip appearing approximately 3 cm above the karen. The karen is poor ly visualized. IMPRESSION: 1. There is the suggestion of a nasogastric tube in the airway with tip extending down the right mainstem bronchus. Recommend replacement. 2. Endotracheal tube with tip appearing approximately 3 cm above the karen. The karen is poorly v isualized. 3. Scattered interstitial opacities bilaterally, similar to prior. Electronically signed by: Samuel Elmore MD 10/19/2021 5:30 AM CDT Due to temporary technical issues with the PACS/Fluency reporting system, reports are being signed by the in house radiologist without review as a courtesy to ensure prompt reporting. The interpreting r adiologist is fully responsible for the content of the report.
[2021-10-19 11:33] VITALS: BP 132/86; TEMP 97.5
== END 2021-10-19 11:07 | disposition short-term general hospital (02) ==
LOC: ER 04:08
PROC: 06HM33Z Insertion of Infusion Device into Right Femoral Vein, Percutaneous Approach (ICD-10-PCS; principal; 2021-10-19)
PROC: 0BH17EZ Insertion of Endotracheal Airway into Trachea, Via Natural or Artificial Opening (ICD-10-PCS; 2021-10-19)
PROC: 5A1935Z Respiratory Ventilation, Less than 24 Consecutive Hours (ICD-10-PCS; 2021-10-19)
DX: I63.9 Cerebral infarction, unspecified (principal); I10 Essential (primary) hypertension; E11.9 Type 2 diabetes mellitus without complications; Z20.822 Contact with and (suspected) exposure to COVID-19; Z95.1 Presence of aortocoronary bypass graft; Z88.5 Allergy status to narcotic agent
CPT/HCPCS: 31500; 36415; 51702; 70450; 71045; 71275; 74175; 80053; 80307; 80320; 81003; 81015; 82565; 82805; 82947; 83605; 84484; 85025; 87040; 87086; 87088; 87804; 93005; 94002; 94003; 99291; 99292; C9113; J0330; J2543; J2704; J3370; J7030; J7040; J7050; Q9967; U0003